=== PATIENT | male | born 1955 | race Caucasian/White ===

== ENCOUNTER 2018-08-12 13:29 | Outpatient (REF) | payer BC, SELFPAY ==
[2018-08-12 16:01] LABS: ALT 36 U/L (12-78); AST 22 U/L (15-37); Albumin 3.7 g/dL (3.4-5.0); Alkaline Phosphatase 152 U/L (46-116); Anion Gap 11.4 mmol/L (3-11); BUN 15 mg/dL (7-18); Bilirubin, Total 0.6 mg/dL (0.2-1.0); CO2 26.6 mmol/L (21.0-32.0); CREATININE 0.95 mg/dL (0.70-1.30); Calcium 9.3 mg/dL (8.5-10.1); Chloride 104 mmol/L (98-107); Cholesterol 153 mg/dL (50-200); Glucose 138 mg/dL (70-100); HDL Cholesterol 44 mg/dL (40-60); LDL CHOLESTEROL 97 mg/dL (<100); Potassium 4.3 mmol/L (3.5-5.1); Sodium 142 mmol/L (136-145); Triglyceride 93 mg/dL (30-150)
== END 2018-08-12 13:49 ==
LOC: NCHCN 13:29
PROVIDERS: PCP Nurse Practitioner Family; Visit Provider Nurse Practitioner
DX: Z00.00 Encounter for general adult medical examination without abnormal findings (principal); R73.09 Other abnormal glucose; I25.10 Atherosclerotic heart disease of native coronary artery without angina pectoris
CPT/HCPCS: 80053; 80061; 83721

== ENCOUNTER 2018-10-25 08:25 | Outpatient (CLI) | payer BC, SELFPAY | END 2018-10-25 08:45 | PROVIDERS: PCP Nurse Practitioner Family; Visit Provider Internal Medicine Interventional Cardiology | DX: I25.10 Atherosclerotic heart disease of native coronary artery without angina pectoris (principal); I10 Essential (primary) hypertension; E78.5 Hyperlipidemia, unspecified | CPT/HCPCS: 93005; 93010 ==

== ENCOUNTER 2018-11-01 00:03 | Outpatient (CLI) | payer BC, SELFPAY ==
--- NOTE | 2018-11-01 11:15 | MERGEMPI_ITS ---
*[facility]* *[facility]* [address] [place] [address] Myocardial Perfusion Imaging - SPECT Aleksandr protocol Date of study: 11/01/2018 *PATIENT PRESENTATION* Height: 180.3cm (71in) Blood Pressure: Weight: 100kg (220lb) BSA: 2.26m^2 Referring physician: Ross Yan MD Ordering physician: Ross Yan MD Impressions: Normal perfusion by Tc99m Sestamibi Imaging. Summary: 1. Myocardial perfusion imaging: No myocardial perfusion defects noted. 2. The calculated left ventricular ejection fraction after stress: 54%. No left ventricular regional motion abnormality. 3. Stress: The target heart rate was achieved. 4. Good functional capacity. CP and EKG changes with exercise; normal perfusion (good images). Will follow, med intensification, would like to see in cardiac rehab. Indication: R07.9. History: REASON FOR VISIT: PT WITH A SIGNIFICANT HISTORY OF CABG X2 IN OCTOBER 1999 IS HER FOR EVALUATION OF HIS INTERMITTENT SHARP MOSTLY RIGHT SIDED CHEST PAINS THESE SYMPTOMS ARE TWINGES LASTING FEW SECONDS EACH TIME AND MORE NOTICABLE WITH ACTIVITY OF HARD WORK AND/OR COUGHING SYMPTOMS ARE NON-RADIATING AND NOT ASSOCIATED WITH SOB. HE STATES HE HAS HAD THESE SYMPTOMS FOR ABOUT 3-4 YEARS NOW. Risk factors: Hypertension. Obesity. Dyslipidemia. Cholesterol: 153mg/dl. HDL: 44mg/dl. LDL: 97mg/dl. Triglycerides: 93mg/dl. ALLERGIES: BERMUDA GRASS. COTTON WOOD TREES. MEDICATIONS: ATORVASTATIN 80 MG DAILY. ASPIRIN 81 MG DAILY. PROTONIX 40 MG DAILY. Imaging Technique: Protocol: Aleksandr protocol. Acquisition: Gated SPECT; 1 day - rest/stress. The patient was imaged in the supine position. Attenuation correction used. Isotope administration: - Rest. Tc[99m]-sestamibi. Dose: 11mCi. Injection time: 10:45 AM. Injection to stress time: 00:45. - Stress. Tc[99m]-sestamibi. Dose: 34mCi. Injection time: 12:17 PM. 1-2 min before end of exercise Baseline ECG: SINUS RHYTHM. HR 63 BPM. Stress protocol: + +---+ + !Stage !HR !BP (mmHg) ! + +---+ + !Baseline supine !63 !140/98 (112) ! + +---+ + !Baseline standing !77 !150/98 (115) ! + +---+ + !Stage I; 1.7mph, 10degrees; 3 min !109!164/80 (108) ! + +---+ + !Stage II; 2.5mph, 12degrees; 3 min !122!180/74 (109) ! + +---+ + !Stage III; 3.4mph, 14degrees; 3 min!138!190/100 (130)! + +---+ + !Stage IV; 4.2mph, 16degrees; 3 min !141! ! + +---+ + !Peak stress !145! ! + +---+ + !Recovery; 1 min !121!206/70 (115) ! + +---+ + !Recovery; 3 min !94 !200/80 (120) ! + +---+ + !Recovery; 6 min !96 !180/86 (117) ! + +---+ + !Recovery; 9 min !---!160/88 (112) ! + +---+ + * Stress results: Maximal heart rate during stress was 145bpm (94% of maximal predicted heart rate). The maximal predicted heart rate was 155bpm. The target heart rate was achieved. The rate-pressure product for the peak heart rate and blood pressure was 79366la Hg/min. Stress ECG: TREADMILL PORTION OF STRESS TEST ENDED IN 9 MINUTES & 23 SECONDS DUE TO SHORTNESS OF BREATH AND FATIGUE. NORMAL HEART RATE AND BLOOD PRESSURE RESPONSE TO EXERCISE. MAX HR = 145 % OF TARGET = 93 OCCASIONAL PVCs APPROXIMATE METS ACHIEVED = 10.78 CHEST PAIN AT STAGE 1 OF EXERCISE 0.5 OUT OF 10 ON PAIN SCALE. CHEST PAIN 2 OUT OF 10 ON PAIN SCALE AT IMMEDIATE RECOVERY. CHEST PAIN SUBSIDED BY [address] SEGMENT DEPRESSIONS NOTED IN V3, V4 & V5 DURING STAGE 3 AND STAGE [address] SEGMENT RETURNED TO BASELINE BY 1 MINUTE POST EXERCISE. ABOVE AVERAGE FUNCTIONAL CAPACITY FOR EXERCISE. Myocardial perfusion: Imaging information: gated. No myocardial perfusion defects noted. Ventricular Function (Wall Motion): The calculated left ventricular ejection fraction after stress: 54%. No left ventricular regional motion abnormality. Study data: Ross Yan MD supervised and was readily available during the procedure. This study was interpreted by [facility]. Study status: Routine. Consent: The risks, benefits, and alternatives to the procedure were explained to the patient and informed consent was obtained. Procedure: Initial setup. A baseline ECG was recorded. Surface ECG leads and manual cuff blood pressure measurements were monitored. Heart sounds: Normal. Lung sounds: Normal. Treadmill exercise testing was performed using the Aleksandr protocol. Study completion: All catheters inserted during the procedure were removed. The patient tolerated the procedure well and was discharged from the lab. Discharge: The patient left the laboratory in stable condition. Birthdate: Patient birthdate: 1955. Sex: Gender: male. Study date: Study date: 11/01/2018. Study time: 00:01 AM. Electronically signed by Ross Yan MD 11/01/2018 17:54
== END 2018-11-01 00:23 ==
PROVIDERS: PCP Nurse Practitioner Family; Visit Provider Internal Medicine Interventional Cardiology
DX: I25.10 Atherosclerotic heart disease of native coronary artery without angina pectoris (principal); R07.9 Chest pain, unspecified; I10 Essential (primary) hypertension; E78.5 Hyperlipidemia, unspecified; E66.9 Obesity, unspecified
CPT/HCPCS: 78452; 93017

== ENCOUNTER 2018-12-13 08:08 | Outpatient (CLI) | payer BC, SELFPAY | END 2018-12-13 08:28 | PROVIDERS: PCP Nurse Practitioner Family; Visit Provider Internal Medicine Interventional Cardiology | DX: I25.10 Atherosclerotic heart disease of native coronary artery without angina pectoris (principal); Z95.1 Presence of aortocoronary bypass graft; E78.5 Hyperlipidemia, unspecified; I10 Essential (primary) hypertension | CPT/HCPCS: 93005; 93010 ==

== ENCOUNTER 2019-02-17 07:10 | Outpatient (CLI) | payer BC, SELFPAY ==
[2019-02-17 10:22] LABS: ALT 51 U/L (16-63); AST 41 U/L (15-37); Albumin 3.7 g/dL (3.4-5.0); Alkaline Phosphatase 145 U/L (46-116); Bilirubin, Direct 0.19 mg/dL (0.00-0.20); Bilirubin, Total 0.8 mg/dL (0.2-1.0); Total Protein 6.9 g/dL (6.4-8.2)
[2019-02-17 10:39] LABS: Calculated LDL 78 mg/dL; Cholesterol 131 mg/dL (50-200); HDL Cholesterol 36 mg/dL (40-60); Triglyceride 88 mg/dL (30-150)
== END 2019-02-17 07:30 ==
PROVIDERS: PCP Nurse Practitioner; Visit Provider Internal Medicine Interventional Cardiology
DX: I25.10 Atherosclerotic heart disease of native coronary artery without angina pectoris (principal)
CPT/HCPCS: 36415; 80061; 80076

== ENCOUNTER 2020-04-24 13:38 | Outpatient (REF) | payer BC, SELFPAY ==
[2020-04-24 18:59] LABS: Hemoglobin A1C 7.2 % (<5.7)
[2020-04-24 19:04] LABS: ALT 57 U/L (16-63); AST 52 U/L (15-37); Albumin 3.9 g/dL (3.4-5.0); Alkaline Phosphatase 156 U/L (46-116); Anion Gap 7.1 mmol/L (3-11); BUN 12 mg/dL (7-18); Bilirubin, Total 0.4 mg/dL (0.2-1.0); CO2 25.9 mmol/L (21.0-32.0); CREATININE 0.97 mg/dL (0.70-1.30); Calcium 8.9 mg/dL (8.5-10.1); Calculated LDL 122 mg/dL (<100); Chloride 104 mmol/L (98-107); Cholesterol 187 mg/dL (<200); Glucose 162 mg/dL (74-106); HDL Cholesterol 37 mg/dL (40-60); Potassium 4.1 mmol/L (3.5-5.1); Sodium 137 mmol/L (136-145); Total Protein 7.1 g/dL (6.4-8.2); Triglyceride 144 mg/dL (<150)
== END 2020-04-24 13:58 ==
LOC: NCHCN 13:38
PROVIDERS: PCP Nurse Practitioner; Visit Provider Nurse Practitioner
DX: R73.03 Prediabetes (principal); E78.5 Hyperlipidemia, unspecified; I10 Essential (primary) hypertension
CPT/HCPCS: 80053; 80061; 83036

== ENCOUNTER 2020-08-27 16:29 | Outpatient (REF) | payer BC, SELFPAY ==
[2020-08-27 18:53] LABS: ALT 35 U/L (16-63); AST 22 U/L (15-37); Albumin 3.7 g/dL (3.4-5.0); Alkaline Phosphatase 127 U/L (46-116); Anion Gap 9.5 mmol/L (3-11); BUN 16 mg/dL (7-18); Bilirubin, Total 0.6 mg/dL (0.2-1.0); CO2 26.5 mmol/L (21.0-32.0); CREATININE 0.8 mg/dL (0.70-1.30); Calcium 9.1 mg/dL (8.5-10.1); Chloride 107 mmol/L (98-107); Glucose 157 mg/dL (74-106); Sodium 143 mmol/L (136-145); Total Protein 6.9 g/dL (6.4-8.2)
[2020-08-27 19:11] LABS: Calculated LDL 43 mg/dL (<100); Cholesterol 101 mg/dL (<200); HDL Cholesterol 45 mg/dL (40-60); Triglyceride 67 mg/dL (<150)
[2020-08-27 19:51] LABS: COMMENT (LAB VIEW ONLY) 240.67 mg/dL; Microalb ug/mg Crea 8.2 ug/mg Cr
== END 2020-08-27 16:30 | disposition home or self-care (01) ==
LOC: NCHCN 16:29
PROVIDERS: PCP Nurse Practitioner; Visit Provider Nurse Practitioner
DX: E11.9 Type 2 diabetes mellitus without complications (principal); E78.5 Hyperlipidemia, unspecified; I10 Essential (primary) hypertension
CPT/HCPCS: 80053; 80061; 82043; 82570; 83036

== ENCOUNTER 2021-10-23 10:02 | Outpatient (REF) | payer BC, SELFPAY ==
[2021-10-23 14:58] LABS: ALT 31 U/L (16-63); AST 24 U/L (15-37); Albumin 3.8 g/dL (3.4-5.0); Alkaline Phosphatase 146 U/L (46-116); Anion Gap 9.1 mmol/L (3-11); BUN 15 mg/dL (7-18); Bilirubin, Total 0.9 mg/dL (0.2-1.0); CO2 25.9 mmol/L (21.0-32.0); Calcium 9.1 mg/dL (8.5-10.1); Calculated LDL 65 mg/dL (<100); Chloride 106 mmol/L (98-107); Cholesterol 120 mg/dL (<200); Glucose 130 mg/dL (74-106); HDL Cholesterol 39 mg/dL (40-60); Potassium 4.5 mmol/L (3.5-5.1); Sodium 141 mmol/L (136-145); Total Protein 6.9 g/dL (6.4-8.2); Triglyceride 80 mg/dL (<150)
== END 2021-10-23 10:03 | disposition home or self-care (01) ==
LOC: NCHCN 10:02
PROVIDERS: PCP Nurse Practitioner; Visit Provider Nurse Practitioner Family
DX: E11.9 Type 2 diabetes mellitus without complications (principal); I10 Essential (primary) hypertension; E78.5 Hyperlipidemia, unspecified; I25.10 Atherosclerotic heart disease of native coronary artery without angina pectoris; K21.9 Gastro-esophageal reflux disease without esophagitis; R79.89 Other specified abnormal findings of blood chemistry
CPT/HCPCS: 80053; 80061

== ENCOUNTER 2022-07-31 14:54 | Outpatient (REF) | payer BC, SELFPAY ==
[2022-07-31 16:19] LABS: COMMENT (LAB VIEW ONLY) 249.82 mg/dL; Microalb ug/mg Crea 7.8 ug/mg Cr
== END 2022-07-31 14:55 | disposition home or self-care (01) ==
LOC: NCHCN 14:54
PROVIDERS: PCP Nurse Practitioner; Visit Provider Nurse Practitioner Family
DX: E11.9 Type 2 diabetes mellitus without complications (principal)
CPT/HCPCS: 82043; 82570

== ENCOUNTER 2022-11-27 15:21 | Outpatient (REF) | payer BC, SELFPAY ==
[2022-11-27 17:19] LABS: Abs Immature Grans 0.03 10^3/uL (0.0-0.06); Absolute Basophil Count 0.07 10^3/uL (0.0-0.2); Absolute Eosinophil Count 0.12 10^3/uL (0.0-0.7); Absolute Lymphocyte Count 1.54 10^3/uL (1.2-3.4); Absolute Monocyte Count 0.62 10^3/uL (0.1-0.8); Absolute Neutrophil Count 4.75 10^3/uL (1.2-6.7); Eosinophils % 1.7; HCT 44.9 % (40.0-50.0); HGB 14.7 g/dL (13.5-17.5); Immature Grans % 0.4; Lymphocytes % 21.6; MCH 28.8 pg (27.0-33.0); MCHC 32.7 % (32.0-36.0); MCV 88 fL (80-95); Monocytes % 8.7; Neutrophils % 66.6; Platelet Count 234 10^3/uL (130-400); RDW 13.9 % (11.8-14.1); RDW-SD 45.1 fL; WBC 7.13 10^3/uL (4.4-10.8)
[2022-11-27 17:33] LABS: ALT 40 U/L (16-63); AST 30 U/L (15-37); Albumin 3.8 g/dL (3.4-5.0); Alkaline Phosphatase 134 U/L (46-116); Anion Gap 7.3 mmol/L (3-11); BUN 11 mg/dL (7-18); Bilirubin, Total 0.7 mg/dL (0.2-1.0); CO2 28.7 mmol/L (21.0-32.0); CREATININE 0.9 mg/dL (0.70-1.30); Calculated LDL 52 mg/dL (<100); Chloride 105 mmol/L (98-107); Cholesterol 109 mg/dL (<200); Estimated GFR 92.45 (mL/min/1.73m2); Glucose 131 mg/dL (74-106); HDL Cholesterol 42 mg/dL (40-60); Potassium 4.6 mmol/L (3.5-5.1); Sodium 141 mmol/L (136-145); Total Protein 7.3 g/dL (6.4-8.2); Triglyceride 78 mg/dL (<150)
== END 2022-11-27 15:22 | disposition home or self-care (01) ==
LOC: NCHCN 15:21
PROVIDERS: PCP Nurse Practitioner; Visit Provider Nurse Practitioner Family
DX: Z00.00 Encounter for general adult medical examination without abnormal findings (principal); E11.9 Type 2 diabetes mellitus without complications; E78.5 Hyperlipidemia, unspecified; I10 Essential (primary) hypertension; R79.89 Other specified abnormal findings of blood chemistry
CPT/HCPCS: 80053; 80061; 85025

== ENCOUNTER 2023-03-12 08:14 | Outpatient (REF) | payer MEDICARE, SELFPAY ==
[2023-03-11 21:11] LABS: Hemoglobin A1C 6.6 % (<5.7)
== END 2023-03-12 08:15 | disposition home or self-care (01) ==
LOC: NCHCN 08:14
PROVIDERS: PCP Nurse Practitioner; Visit Provider Nurse Practitioner Family
DX: E11.9 Type 2 diabetes mellitus without complications (principal)
CPT/HCPCS: 83036

== ENCOUNTER 2023-09-14 09:52 | Outpatient (REF) | payer MEDICARE, SELFPAY ==
[2023-09-14 17:44] LABS: Hemoglobin A1C 7.5 % (<5.7)
== END 2023-09-14 09:53 | disposition home or self-care (01) ==
LOC: NCHCN 09:52
PROVIDERS: Visit Provider Nurse Practitioner Family
DX: E11.9 Type 2 diabetes mellitus without complications (principal)
CPT/HCPCS: 83036

== ENCOUNTER → 2023-12-25 01:48 | Outpatient (CLI) | payer MEDICARE, SELFPAY ==
--- NOTE | 2023-12-25 | DI.US_ITS ---
APPROVED REPORT EXAM: Comprehensive 2D, Doppler, and color-flow Echocardiogram Patient Location: Out-Patient Director Of Operations Support: Zulema Adler RDCS (AE) Indications: Atherosclerosis of coronary artery w/o angina Other Information Study Quality: Adequate Conclusion Normal left ventricular wall thickness and chamber size. Ejection fraction is 60%. Wall motion is n ormal Normal right ventricular size and function Both atria are normal in size Aortic valve is mildly sclerotic and trileaflet without stenosis or regurgitation Normal mitral valve, mild mitral regurgitation Enlarged aortic root, normal ascending aorta Wall motion Left Ventricle The left ventricle is normal size. The left ventricular systolic function is normal. The left ventric ular ejection fraction is within the normal range. There is normal left ventricular wall thickness. T here is normal LV segmental wall motion. There is no ventricular septal defect visualized. LVEF is 60 %. Right Ventricle The right ventricle is normal size. The right ventricular systolic function is normal. Atria The left atrium size is normal. The right atrium size is normal. The interatrial septum is intact wit h no evidence for an atrial septal defect. Aortic Valve The aortic valve is mildly sclerotic Aortic valve is trileaflet. There is no aortic valvular stenosis . No aortic regurgitation is present. Mitral Valve The mitral valve is normal in structure. No evidence of mitral valve stenosis. Mild mitral regurgitat ion. Tricuspid Valve The tricuspid valve is normal in structure. There is no tricuspid valve stenosis. Trace tricuspid reg urgitation. Unable to assess PA pressure. Pulmonic Valve The pulmonary valve is normal in structure. There is no pulmonic valvular stenosis. Trace pulmonic re gurgitation. Great Vessels Aortic root is moderately dilated. The ascending aorta is normal in size. Aortic arch is not well vis ualized. IVC is normal in size and collapses >50% with inspiration. Pericardium There is no pericardial effusion. 2D Dimensions IVSD d PLAX 0.80 cm M: 0.6-1.2 Ao Root d 4.25 cm M: 3.1 - 3.7 LVPW d PLAX 0.83 cm M: 0.6 - 1.2 Ao Asc Diam d 3.25 cm M: 2.6 - 3.4 LVID d PLAX 4.52 cm M: 4.2 - 5.8 LVDs 3.15 cm M: 2.5 - 4.0 LV EF Teichholz 57.6 % FS 30.20 % LV EDV (Teich) 93.3 mL LV ESV (Teich) 39.5 mL M-Mode TAPSE 1.25 cm (M/F) >1.7 Auto EF LV EDV A4C 105.5 mL LV EDV A2C 112.8 mL LV EDV BP 106.9 mL LV ESV A4C 41.5 mL LV ESV A2C 43.9 mL LV ESV BP 43.0 mL LVEF(%) A4C 60.7 % LVEF(%) A2C 61.1 % LVEF(%) BP 59.8 % LV SV A4C 64.1 ml LV SV A2C 69.0 ml LV SV BP 63.9 ml LV CO A4C 4.0 L/min LV CO A2C 4.2 L/min LV CO BP 4.1 L/min HR A4C 62.40 BPM HR A2C 60.41 BPM LV EDV Index (BP) LA Volume LA Length A4C 5.0 cm LA Length A2C 5.4 cm LA Area A4C s 16.63 cm2 LA Area A2C s 16.79 cm2 LA Vol A4C A-L 47.20 mL LA Vol A2C A-L 44.18 mL LA Vol Biplane A-L 47.6 mL LA Vol/BSA A4C A-L LA Vol/BSA A2C A-L LA Vol/BSA BP A-L 22.0 mL/m2 LA Vol A4C MOD 42.1 mL LA Vol A2C MOD 41.9 mL LA Vol BP MOD 43.5 mL RA Volume RA Area A4C 11.5 cm2 RA ESV A4C (A-L) 25.1mL RA Vol/BSA A4C A-L RA Length A4C 4.5 cm RA ESV A4C (MOD) 23.9mL LV Diastology MV E' medial 0.055 (>0.07 m/s) MV E Vmax 0.67 (0.4-1.3 m/s) MV E/E' MED 12.08 (<14) MV A Vmax 0.75 (0.4-1.3 m/s) MV E' lateral 0.082 (>0.1 m/s) E/A Ratio 0.9 MV E/E' LAT 8.08 (<14) MV E' Average 0.069 m/s MV E/E'(average) 9.69 Aortic Valve AoV Vmax 1.29 m/s LVOT Vmax 1.10 m/s AoV Peak Grad 6.6 mmHg LVOT Peak Grad 4.9 mmHg AoV Area (Vmax) 2.79 cm2 LVOT VTI 0.231 m AoV VTI 0.286 m LVOT Mean Grad 2.4 mmHg AoV Mean Kwame. 0.89 m/s LVOT SV 75.25 mL AoV Mean Grad 3.6 mmHg LVOT Diam s 2.00 cm AoV Area (VTI) 2.63 cm2 Velocity Ratio 0.85 Mitral Valve MV DT 324 (160-240 msec) MV Vmax TIPS 0.79 m/s MV Mean Grad 0.9 (<2mmHg) MV VTI 0.259 m Pulmonary Valve PV Vmax 1.22 (0.5-1.5 m/s) RVOT Vmax 0.58 m/s PV Peak Grad 5.9 mmHg RVOT Peak Gr. 1.4 mmHg PV Mean Kwame 0.82 m/s RVOT VTI 0.123 m PV Mean Grad 3.1 mmHg RVOT Mean Gr. 0.8 mmHg Tricuspid Valve RA Pressure 3.00 mmHg TV S' 0.10 m/s
== END ==
PROVIDERS: Visit Provider Nurse Practitioner Family
DX: I25.10 Atherosclerotic heart disease of native coronary artery without angina pectoris (principal)
CPT/HCPCS: 93306

== ENCOUNTER 2024-05-31 10:27 | Outpatient (CLI) | payer MEDICARE, SELFPAY ==
[2024-05-31 10:11] LABS: HCT 42.5 % (40.0-50.0); HGB 14.1 g/dL (13.5-17.5); MCH 28.4 pg (27.0-33.0); MCHC 33.2 % (32.0-36.0); MCV 86 fL (80-95); MPV 10.5 fL (8.0-11.0); Platelet Count 223 10^3/uL (130-400); RBC 4.96 10^6/uL (4.36-5.78); WBC 7.38 10^3/uL (4.4-10.8)
[2024-05-31 10:17] LABS: Hemoglobin A1C 7.2 % (<5.7)
[2024-05-31 10:24] LABS: ALT 19 U/L (16-63); AST 16 U/L (15-37); Albumin 3.6 g/dL (3.4-5.0); Alkaline Phosphatase 135 U/L (46-116); Anion Gap 7.2 mmol/L (3-11); BUN 14 mg/dL (7-18); Bilirubin, Total 1.04 mg/dL (0.2-1.0); CO2 29.8 mmol/L (21.0-32.0); Calcium 9.5 mg/dL (8.5-10.1); Calculated LDL 39 mg/dL (<100); Chloride 105 mmol/L (98-107); Cholesterol 97 mg/dL (<200); Estimated GFR 80.97 (mL/min/1.73m2); Glucose 168 mg/dL (74-106); HDL Cholesterol 48 mg/dL (40-60); Potassium 3.9 mmol/L (3.5-5.1); Sodium 142 mmol/L (136-145); Total Protein 7.3 g/dL (6.4-8.2); Triglyceride 53 mg/dL (<150)
== END 2024-05-31 10:28 | disposition home or self-care (01) ==
LOC: LBO 10:29
PROVIDERS: PCP Nurse Practitioner Family; Visit Provider Nurse Practitioner Family
DX: I10 Essential (primary) hypertension (principal); E11.9 Type 2 diabetes mellitus without complications; E78.5 Hyperlipidemia, unspecified
CPT/HCPCS: 36415; 80053; 80061; 85027; 83036

== ENCOUNTER → 2024-07-20 08:51 | Outpatient (BNVA) | payer MEDICARE, SELFPAY | PROVIDERS: PCP Nurse Practitioner Family; Referring Provider Nurse Practitioner Family; Visit Provider Student in an Organized Health Care Education/Training Program | DX: Z12.11 Encounter for screening for malignant neoplasm of colon (principal); Z80.0 Family history of malignant neoplasm of digestive organs ==

== ENCOUNTER 2024-08-09 06:55 | Day surgery (SDC) | payer MEDICARE, SELFPAY ==
[2024-08-09 07:14] VITALS: BP 137/88; PULSE 82; RESP 16; TEMP 36.2; O2SAT 94
--- NOTE | 2024-08-09 07:33 | ANES.PREOP_ITS ---
General Info Date of Service Date Performed: 08/09/24 Height: 5 ft 11 in Weight: 92.7 kg Body Mass Index (BMI): 28.5 Surgical Procedure: Operation Date: 08/09/24 08:20 Proposed Procedure Side Surgeon p Kathryn Cordova MD Meds Allergies and Home Medications Allergies Allergy/AdvReac Type Severity Reaction Status Date / Time bermuda grass AdvReac sneezing Uncoded 08/09/24 07:24 cotton wood trees AdvReac sneezing Uncoded 08/09/24 07:24 Home Medication ?Medication ?Instructions ?Recorded acetaminophen 500 mg tablet (Pain 1,000 mg PO PRN PRN 12/01/12 Relief Extra Strength (acetaminophen)) aspirin 81 mg chewable tablet 81 mg PO DAILY 09/18/14 (Aspirin Low-Strength) nitroglycerin 0.4 mg sublingual 0.4 mg sublingual PRN 09/18/14 tablet ibuprofen 200 mg tablet (Advil) 1 tab PO PRN PRN 03/02/15 atorvastatin 40 mg tablet 80 mg (2 x 40 mg) PO DAILY #45 10/25/18 tab-caps metformin 500 mg tablet,extended 1,000 mg PO BID 07/01/24 release 24 hr omeprazole 20 mg capsule,delayed 20 mg PO DAILY 07/01/24 release tadalafil 10 mg tablet 10 mg PO DAILY PRN 07/01/24 bisacodyl 5 mg tablet,delayed 5 mg PO ONCE colonscopy bowel prep 07/20/24 release (Dulcolax (bisacodyl)) #4 tabs polyethylene glycol 3350 17 238 g PO ONCE colonoscopy prep 07/20/24 gram/dose oral powder #238 grams Current Visit Medications: Current Medications Generic Name Dose Route Start Last Admin Trade Name Freq PRN Reason Stop Dose Admin Ringer's Solution 1,000 mls @ 80 mls/hr 08/09/24 06:00 IV 08/09/24 23:59 INFUSION ELENA IV Miscellaneous Supplies 1 each 08/09/24 06:00 Iv Access IV 08/09/24 23:59 DIRECTED ELENA Sodium Chloride 0 ml 08/09/24 06:00 Normal Saline Flush 10 Ml Syr IV 08/09/24 23:59 PRN PRN Sodium Chloride 0 ml 08/09/24 06:00 Normal Saline 10 Ml Vial IJ 08/09/24 23:59 DIRECTED PRN Sterile Water 0 ml 08/09/24 06:00 Water,Injection,Sterile 10 Ml Vial IJ 08/09/24 23:59 DIRECTED PRN [facility] Medical History Medical History Erectile dysfunction Elevated liver enzymes Hyperlipidemia Atherosclerosis of coronary artery without angina pectoris Type II diabetes mellitus Family history of colon cancer in mother HTN (hypertension) GERD (gastroesophageal reflux disease) Prediabetes CAD (coronary artery disease) Spondylosis Peyronie disease Surgical History Surgical History Tonsillectomy Hemorrhoidal Banding Colonoscopy - IV Sedation (09/17/16) Coronary Artery Bypass [place] (CABG) (~1999) 2000 x2. Pt. discharged from cardiology Tobacco Smoking/Tobacco Use Status: Never Alcohol Alcohol Intake: never Substance Use Substance use: Never Substance use type: does not use Vital Signs and Lab Results Vital Signs Most Recent Vital Signs in EMR: Most Recent Vital Signs Temp Pulse Resp BP Pulse Ox 36.2 C L 82 16 137/88 94 08/09/24 07:14 08/09/24 07:14 08/09/24 07:14 08/09/24 07:14 08/09/24 07:14 Lab Results Blood Type / Crossmatch: No Data to Display Complete Blood Count: No Data to Display Complete Metabolic Panel: No Data to Display Liver Function Panel: No Data to Display Coagulation Panel: No Data to Display Cardiac Panel: No Data to Display Arterial Blood Gas: No Data to Display Venous Blood Gas: No Data to Display Pancreas Panel: No Data to Display Thyroid Panel: No Data to Display Infectious Disease: No Data to Display Blood Cultures: No Data to Display Toxicology Panel: No Data to Display Imaging and Studies Imaging and Studies Study information below may be from another EMR and interpreted by another provider. Please see original notes in EMR for more complete details. Stress Test Summary: Patient Name: RONAN CERVANTES Unit #: [id number] Loc: DI Ordering Provider: Ross Yan M.D. Status: REG CLI Primary Care Provider: Naheed Whitt Date of Exam: 11/01/18 Sex: M : 1955 Age: 63 Exam(s) a NM:NM MPI rest & stress grp *[facility]* *[facility]* [address] [place] [address] Myocardial Perfusion Imaging - SPECT Aleksandr protocol Date of study: 11/01/2018 *PATIENT PRESENTATION* Height: 180.3cm (71in) Blood Pressure: Weight: 100kg (220lb) BSA: 2.26m^2 Referring physician: Ross Yan MD Ordering physician: Ross Yan MD Impressions: Normal perfusion by Tc99m Sestamibi Imaging. Summary: 1. Myocardial perfusion imaging: No myocardial perfusion defects noted. 2. The calculated left ventricular ejection fraction after stress: 54%. No left ventricular regional motion abnormality. 3. Stress: The target heart rate was achieved. 4. Good functional capacity. CP and EKG changes with exercise; normal perfusion (good images). Will follow, med intensification, would like to see in cardiac rehab. Indication: R07.9. History: REASON FOR VISIT: PT WITH A SIGNIFICANT HISTORY OF CABG X2 IN OCTOBER 1999 IS HER FOR EVALUATION OF HIS INTERMITTENT SHARP MOSTLY RIGHT SIDED CHEST PAINS THESE SYMPTOMS ARE TWINGES LASTING FEW SECONDS EACH TIME AND MORE NOTICABLE WITH ACTIVITY OF HARD WORK AND/OR COUGHING SYMPTOMS ARE NON-RADIATING AND NOT ASSOCIATED WITH SOB. HE STATES HE HAS HAD THESE SYMPTOMS FOR ABOUT 3-4 YEARS NOW. Risk factors: Hypertension. Obesity. Dyslipidemia. Cholesterol: 153mg/dl. HDL: 44mg/dl. LDL: 97mg/dl. Triglycerides: 93mg/dl. ALLERGIES: BERMUDA GRASS. COTTON WOOD TREES. MEDICATIONS: ATORVASTATIN 80 MG DAILY. ASPIRIN 81 MG DAILY. PROTONIX 40 MG DAILY. Imaging Technique: Protocol: Aleksandr protocol. Acquisition: Gated SPECT; 1 day - rest/stress. The patient was imaged in the supine position. Attenuation correction used. Isotope administration: - Rest. Tc[99m]-sestamibi. Dose: 11mCi. Injection time: 10:45 AM. Injection to stress time: 00:45. - Stress. Tc[99m]-sestamibi. Dose: 34mCi. Injection time: 12:17 PM. 1-2 min before end of exercise Baseline ECG: SINUS RHYTHM. HR 63 BPM. Stress protocol: + +---+ + !Stage !HR !BP (mmHg) ! + +---+ + !Baseline supine !63 !140/98 (112) ! + +---+ + !Baseline standing !77 !150/98 (115) ! + +---+ + !Stage I; 1.7mph, 10degrees; 3 min !109!164/80 (108) ! + +---+ + !Stage II; 2.5mph, 12degrees; 3 min !122!180/74 (109) ! + +---+ + !Stage III; 3.4mph, 14degrees; 3 min!138!190/100 (130)! + +---+ + !Stage IV; 4.2mph, 16degrees; 3 min !141! ! + +---+ + !Peak stress !145! ! + +---+ + !Recovery; 1 min !121!206/70 (115) ! + +---+ + !Recovery; 3 min !94 !200/80 (120) ! + +---+ + !Recovery; 6 min !96 !180/86 (117) ! + +---+ + !Recovery; 9 min !---!160/88 (112) ! + +---+ + * Stress results: Maximal heart rate during stress was 145bpm (94% of maximal predicted heart rate). The maximal predicted heart rate was 155bpm. The target heart rate was achieved. The rate-pressure product for the peak heart rate and blood pressure was 03821be Hg/min. Stress ECG: TREADMILL PORTION OF STRESS TEST ENDED IN 9 MINUTES & 23 SECONDS DUE TO SHORTNESS OF BREATH AND FATIGUE. NORMAL HEART RATE AND BLOOD PRESSURE RESPONSE TO EXERCISE. MAX HR = 145 % OF TARGET = 93 OCCASIONAL PVCs APPROXIMATE METS ACHIEVED = 10.78 CHEST PAIN AT STAGE 1 OF EXERCISE 0.5 OUT OF 10 ON PAIN SCALE. CHEST PAIN 2 OUT OF 10 ON PAIN SCALE AT IMMEDIATE RECOVERY. CHEST PAIN SUBSIDED BY [address] SEGMENT DEPRESSIONS NOTED IN V3, V4 & V5 DURING STAGE 3 AND STAGE [address] SEGMENT RETURNED TO BASELINE BY 1 MINUTE POST EXERCISE. ABOVE AVERAGE FUNCTIONAL CAPACITY FOR EXERCISE. Myocardial perfusion: Imaging information: gated. No myocardial perfusion defects noted. Ventricular Function (Wall Motion): The calculated left ventricular ejection fraction after stress: 54%. No left ventricular regional motion abnormality. Study data: Ross Yan MD supervised and was readily available during the procedure. This study was interpreted by [facility]. Study status: Routine. Consent: The risks, benefits, and alternatives to the procedure were explained to the patient and informed consent was obtained. Procedure: Initial setup. A baseline ECG was recorded. Surface ECG leads and manual cuff blood pressure measurements were monitored. Heart sounds: Normal. Lung sounds: Normal. Treadmill exercise testing was performed using the Aleksandr protocol. Study completion: All catheters inserted during the procedure were removed. The patient tolerated the procedure well and was discharged from the lab. Discharge: The patient left the laboratory in stable condition. Birthdate: Patient birthdate: 1955. Sex: Gender: male. Study date: Study date: 11/01/2018. Study time: 00:01 AM. Electronically signed by Ross Yan MD 11/01/2018 17:54 Ordering provider: Ross Yan M.D. CC: ROSS YAN MD Dictated by: Luann Batista M.D.11/02/18 0900 <Electronically signed by Luann Batista M.D.>11/03/18 1211 Disclaimer: The [facility] radiologist is signing only the Nuclear Medicine MPI Imaging exam portion of the report. Transcribed by: Swati Cantu11/03/18 8298 This is privileged, confidential information intended only for the provider named. Any use or distribution by any person other than this provider is strictly prohibited. If you receive this report in error, please notify us immediately at [phone] and return the original report to us at the address above. Thank-you. Echocardiogram Summary: Patient Name: Ronan Cervantes III Unit #: [id number] Loc: Ordering Provider: FERNANDO FERNANDEZ NP Status: [facility] Primary Care Provider: Unknown,Unknown Date of Exam: 12/25/23 Sex: M Admission Date: 12/25/23 : 1955 Age: 68 APPROVED REPORT EXAM: Comprehensive 2D, Doppler, and color-flow Echocardiogram Patient Location: Out-Patient Theater Education Teacher: Zulema Adler RDCS (AE) Indications: Atherosclerosis of coronary artery w/o angina Other Information Study Quality: Adequate Conclusion Normal left ventricular wall thickness and chamber size. Ejection fraction is 60%. Wall motion is normal Normal right ventricular size and function Both atria are normal in size Aortic valve is mildly sclerotic and trileaflet without stenosis or regurgitation Normal mitral valve, mild mitral regurgitation Enlarged aortic root, normal ascending aorta Wall motion Left Ventricle The left ventricle is normal size. The left ventricular systolic function is normal. The left ventricular ejection fraction is within the normal range. There is normal left ventricular wall thickness. There is normal LV segmental wall motion. There is no ventricular septal defect visualized. LVEF is 60%. Right Ventricle The right ventricle is normal size. The right ventricular systolic function is normal. Atria The left atrium size is normal. The right atrium size is normal. The interatrial septum is intact with no evidence for an atrial septal defect. Aortic Valve The aortic valve is mildly sclerotic Aortic valve is trileaflet. There is no aortic valvular stenosis. No aortic regurgitation is present. Mitral Valve The mitral valve is normal in structure. No evidence of mitral valve stenosis. Mild mitral regurgitation. Tricuspid Valve The tricuspid valve is normal in structure. There is no tricuspid valve stenosis. Trace tricuspid regurgitation. Unable to assess PA pressure. Pulmonic Valve The pulmonary valve is normal in structure. There is no pulmonic valvular stenosis. Trace pulmonic regurgitation. Great Vessels Aortic root is moderately dilated. The ascending aorta is normal in size. Aortic arch is not well visualized. IVC is normal in size and collapses >50% with inspiration. Pericardium There is no pericardial effusion. 2D Dimensions IVSD d PLAX 0.80 cm M: 0.6-1.2Ao Root d 4.25 cm M: 3.1 - 3.7 LVPW d PLAX 0.83 cm M: 0.6 - 1.2Ao Asc Diam d 3.25 cm M: 2.6 - 3.4 LVID d PLAX 4.52 cm M: 4.2 - 5.8 LVDs 3.15 cm M: 2.5 - 4.0 LV EF Teichholz 57.6 % FS30.20 % LV EDV (Teich)93.3 mL LV ESV (Teich)39.5 mL M-Mode TAPSE 1.25 cm (M/F) >1.7 Auto EF LV EDV S0Z246.5 mLLV EDV P2G777.8 mLLV EDV BP106.9 mL LV ESV A4C41.5 mLLV ESV A2C43.9 mLLV ESV BP43.0 mL LVEF(%) A4C60.7 %LVEF(%) A2C61.1 %LVEF(%) BP59.8 % LV SV A4C64.1 mlLV SV A2C69.0 mlLV SV BP63.9 ml LV CO A4C4.0 L/minLV CO A2C4.2 L/minLV CO BP4.1 L/min HR A4C62.40 BPMHR A2C60.41 BPMLV EDV Index (BP) LA Volume LA Length A4C5.0 cmLA Length A2C5.4 cm LA Area A4C s 16.63 cm2LA Area A2C s 16.79 cm2 LA Vol A4C A-L47.20 mLLA Vol A2C A-L44.18 mLLA Vol Biplane A-L47.6 mL LA Vol/BSA A4C A-LLA Vol/BSA A2C A-LLA Vol/BSA BP A-L 22.0 mL/m2 LA Vol A4C MOD42.1 mLLA Vol A2C MOD41.9 mLLA Vol BP MOD43.5 mL RA Volume RA Area A4C11.5 cm2RA ESV A4C (A-L)25.1mLRA Vol/BSA A4C A-L RA Length A4C4.5 cmRA ESV A4C (MOD)23.9mL LV Diastology MV E' medial0.055 (>0.07 m/s)MV E Vmax 0.67 (0.4-1.3 m/s) MV E/E' MED12.08 (<14)MV A Vmax 0.75 (0.4-1.3 m/s) MV E' lateral0.082 (>0.1 m/s)E/A Ratio 0.9 MV E/E' LAT8.08 (<14) MV E' Average0.069 m/s MV E/E'(average)9.69 Aortic Valve AoV Vmax1.29 m/sLVOT Vmax 1.10 m/s AoV Peak Grad6.6 mmHgLVOT Peak Grad 4.9 mmHg AoV Area (Vmax)2.79 bo9BESE VTI0.231 m AoV VTI0.286 mLVOT Mean Grad 2.4 mmHg AoV Mean Kwame.0.89 m/sLVOT SV 75.25 mL AoV Mean Grad3.6 mmHgLVOT Diam s 2.00 cm AoV Area (VTI)2.63 cm2 Velocity Ratio 0.85 Mitral Valve MV DT 324 (160-240 msec) MV Vmax TIPS 0.79 m/s MV Mean Grad 0.9 (<2mmHg) MV VTI 0.259 m Pulmonary Valve PV Vmax 1.22 (0.5-1.5 m/s)RVOT Vmax 0.58 m/s PV Peak Grad 5.9 mmHgRVOT Peak Gr.1.4 mmHg PV Mean Vel0.82 m/sRVOT VTI0.123 m PV Mean Grad 3.1 mmHgRVOT Mean Gr.0.8 mmHg Tricuspid Valve RA Pressure 3.00 mmHg TV S'0.10 m/s Ordered By: FERNANDO FERNANDEZ NP CC: Dictated By: Emani Posey M.D. 12/28/23 1033 <Electronically signed by Emani Posey M.D. in OV> 12/28/23 1109 Transcribed By: Emani Posey MD 12/28/23 1033 This is privileged, confidential information intended only for the provider named. Any use or distribution by any person other than this provider is strictly prohibited. If you receive this report in error, please notify us immediately at [phone] and return the original report to us at the address above. Thank-you. Anesthesia Assessment and Plan Anesthesia History Personal History: No History of Anesthesia Complications Family History: No Family History of Anesthesia Complications Exercise Tolerance Exercise Tolerance: Metabolic Equivalents>4 Pertinent Negatives Pertinent Negatives: No Major Pulmonary Symptoms or Complaints and No History of CVA/TIA Cardiac & Pulmonary Exam Cardiac Exam: Normal S1/S2 Heart Sounds Pulmonary Exam: Clear Bilateral Breath Sounds Implantable Cardiac Device Does patient have a Pacemaker or an ICD?: No Airway Exam Known Difficult Airway: No Mallampati Class: 2 Mouth Opening: Normal (> 3cm) Thyromental Distance: Greater than 3 cm Neck Range of Motion: Full ROM Neck Circumference: Normal Teeth Condition: Normal Dentition ASA Classification ASA Score: ASA 2 Emergency Case?: No NPO Status NPO Status: NPO Clears >2 hours, Solids >8 hours Anesthesia Plan Resuscitation Status: Full Code Anesthesia Technique: General Anesthesia Airway Planned: Natural Airway Monitors Used: Standard Monitors
[2024-08-09 07:35] VITALS: BMI 28.5
[2024-08-09] MEDS: Lactated Ringers 1,000 ML 80 ML IV (07:40)
[2024-08-09 08:49] VITALS: BP 134/85; PULSE 79; RESP 16; TEMP 36.6; O2SAT 98
--- NOTE | 2024-08-09 08:51 | COLE_ITS ---
Date of service: 08/09/24 Time of Service: 08:51 Colonoscopy Report Procedure Description: PROCEDURES PERFORMED: 1. Colonoscopy PREOPERATIVE DIAGNOSIS: Surveillance colonoscopy POSTOPERATIVE DIAGNOSIS: Left?sided diverticulosis, grade 1 internal hemorrhoids SURGEON: Jess Cordova MD INDICATION FOR PROCEDURE: the patient is a 69-year-old man has a family history of colon cancer in his mother. Prior colonoscopies have been reportedly normal. He thinks maybe a polyp was removed at some previous time. He is on a 5-year follow-up/interval. FINDINGS: No polyps. Significant diverticular disease in the left colon and sigmoid colon but without stricture or active inflammation. Grade 1 internal hemorrhoids noted on retroflexion. SURVEILLANCE interval/FOLLOW-UP: Continue 5 years interval SPECIMENS: None EBL: Minimal COMPLICATIONS: None QUALITY of prep: Excellent Procedure in detail: The patient gave written consent and was in agreement with the indications, the potential risks as well as the benefits of the procedure. They were taken to the endoscopy suite and laid in the left lateral decubitus position. A timeout was performed and anesthesia was administered which was tolerated well. I started the procedure. Digital rectal and visual examination was performed and grossly within normal limits. A well-lubricated flexible colonoscope was then introduced and passed without any notable difficulty all the way to the cecum identified by the ile ocecal valve and the appendiceal orifice. The scope was then slowly withdrawn with the above-noted findings. The patient tolerated the procedure well and was taken to the PACU in hemodynamically stable condition.
--- NOTE | 2024-08-09 08:52 | W.PM.DSUDISC ---
Date of service: 08/09/24 Discharge Plan Disposition Patient Disposition: Home Condition: Good Discharge Details Attending Provider: Rio Cordova Primary Care Provider: FERNANDO FERNANDEZ Home Meds and New Rx's Prescriptions: No Action atorvastatin 40 mg tablet 80 mg PO DAILY Qty: 45 11RF polyethylene glycol 3350 17 gram/dose powder 238 g PO ONCE Qty: 238 0RF Rx Instructions: take per colonoscopy instructions bisacodyl [Dulcolax (bisacodyl)] 5 mg tablet,delayed release (DR/EC) 5 mg PO ONCE Qty: 4 0RF Rx Instructions: take per colonoscopy instructions nitroglycerin 0.4 MG tablet, sublingual 0.4 mg Sublingual PRN aspirin [Aspirin Low-Strength] 81 MG tablet,chewable 81 mg PO DAILY metformin 500 mg tablet extended release 24 hr 1,000 mg PO BID omeprazole 20 mg capsule,delayed release(DR/EC) 20 mg PO DAILY tadalafil 10 mg tablet 10 mg PO DAILY PRN Rx Instructions: administer approximately 30min before sexual activity; do not use more than 1 dose per 24hrs acetaminophen [Pain Relief ES (acetaminophen)] 500 MG tablet 1,000 mg PO PRN PRN Patient Comments: does not use ibuprofen [Advil] 200 MG tablet 1 tab PO PRN PRN Discharge Instructions Additional Instructions: FINDINGS: No polyps were found. No inflammation or concerning findings anywhere. Diverticulosis disease is benign and stable. Repeat another colonoscopy in 5 years. Activity:: Activity as Tolerated Diet:: As Tolerated
--- NOTE | 2024-08-09 09:22 | W.ANESPOSTOP ---
Postoperative Evaluation Date, Time and Location Date Performed: 08/09/24 Time Performed: 09:02 Patient Location: Day Surgery Unit Vital Signs Most Recent Imported Vital Signs: Most Recent Vital Signs Temp Pulse Resp BP Pulse Ox 36.6 C 79 16 134/85 98 08/09/24 08:49 08/09/24 08:49 08/09/24 08:49 08/09/24 08:49 08/09/24 08:49 Pain Score Most Recent Pain Score: Most Recent Pain Score Pain Level 0 08/09/24 08:49 Assessment Mental Status: Awake (Alert & Oriented to Patient Baseline) Airway and Respiratory Function: Patent airway with normal (patient baseline) respiratory exam Cardiovascular Function: Hemodynamically Stable Hydration Status: Adequately Hydrated Nausea & Vomiting: No Nausea or Vomiting Pain: Pt. Denies Any Pain Peripheral Nerve Block: Patient did not receive a nerve block
[2024-08-09 09:23] VITALS: BP 139/82; PULSE 65; RESP 16; TEMP 36.8; O2SAT 98
== END 2024-08-09 09:31 | disposition home or self-care (01) ==
PROVIDERS: PCP Nurse Practitioner Family; Visit Provider Student in an Organized Health Care Education/Training Program
PROC: 0DJD8ZZ Inspection of Lower Intestinal Tract, Via Natural or Artificial Opening Endoscopic (ICD-10-PCS; CPT 45378; principal; 2024-08-09 08:15)
DX: Z12.11 Encounter for screening for malignant neoplasm of colon (principal); K57.30 Diverticulosis of large intestine without perforation or abscess without bleeding; K64.0 First degree hemorrhoids; Z80.0 Family history of malignant neoplasm of digestive organs
CPT/HCPCS: G0105; J2704

== ENCOUNTER 2025-06-19 16:11 | Outpatient (REF) | payer MEDICARE, SELFPAY ==
[2025-06-19 18:04] LABS: HCT 41.0 % (40.0-50.0); HGB 13.7 g/dL (13.5-17.5); MCH 28.7 pg (27.0-33.0); MCHC 33.4 % (32.0-36.0); MCV 86 fL (80-95); MPV 12.0 fL (8.0-11.0); Platelet Count 234 10^3/uL (130-400); RBC 4.77 10^6/uL (4.36-5.78); RDW 14.2 % (11.8-14.1); RDW-SD 44.6 fL; WBC 6.02 10^3/uL (4.4-10.8)
[2025-06-19 18:22] LABS: ALT 26 U/L (10-49); AST 25 U/L (<34); Albumin 4.1 g/dL (3.2-5.0); Alkaline Phosphatase 155 U/L (46-116); Anion Gap 9.3 mmol/L (3-11); BUN 12 mg/dL (9-23); Bilirubin, Total 0.5 mg/dL (0.2-1.2); CO2 23.7 mmol/L (20.0-31.0); Calcium 8.9 mg/dL (8.3-10.6); Chloride 110 mmol/L (98-107); Cholesterol 96 mg/dL (<200); Glucose 242 mg/dL (74-106); HDL Cholesterol 38 mg/dL (>or=40); Potassium 3.9 mmol/L (3.5-5.1); Sodium 143 mmol/L (136-145); Total Protein 6.3 g/dL (5.7-8.2)
[2025-06-19 18:23] LABS: Hemoglobin A1C 7.1 % (<5.7)
[2025-06-19 18:43] LABS: Microalb ug/mg Crea 5.2 ug/mg Cr
== END 2025-06-19 16:12 | disposition home or self-care (01) ==
LOC: NCHCN 16:11
PROVIDERS: PCP Nurse Practitioner Family; Visit Provider Nurse Practitioner Family
DX: Z00.00 Encounter for general adult medical examination without abnormal findings (principal)
CPT/HCPCS: 80053; 80061; 85027; 82043; 82570; 83036